=== PATIENT | female | born 1945 | race Caucasian/White ===

== ENCOUNTER → 2017-06-04 | Outpatient (CLI) | payer OTHER | END | disposition home or self-care (01) | LOC: KCIC 12:55 | DX: R06.02 Shortness of breath (principal); R05 Cough | CPT/HCPCS: 71046 ==

== ENCOUNTER → 2017-06-11 | Outpatient (CLI) | payer OTHER | END | disposition home or self-care (01) | LOC: ECHO 09:34 | DX: I36.1 Nonrheumatic tricuspid (valve) insufficiency (principal); I10 Essential (primary) hypertension; R60.0 Localized edema | CPT/HCPCS: 93306 ==

== ENCOUNTER → 2018-03-10 | Outpatient (CLI) | payer OTHER ==
--- NOTE | 2018-03-10 13:36 | KCIC ---
MRI of the lumbar spine without contrast 03/10/2018 CLINICAL HISTORY: Chronic low back pain which radiates down both legs, right greater than left. TECHNIQUE: Unenhanced T1-weighted and T2-weighted sagittal and axial and inversion recovery sagittal images of the lumbar spine were obtained. FINDINGS: For the purposes of this dictation 5 lumbar vertebrae have been assumed. The last well-defined lumbar-appearing disc space will be referred to as L5-S1. A hypoplastic disc is seen at S1-2. Minimal S-shaped curvature of the thoracolumbar spine is seen. Mild anterolisthesis of L4 in relation to L5 is noted. Degenerative signal changes are seen involving all of the disks of the lumbar spine. Degenerative signal changes are seen within the marrow surrounding these discs. The conus medullaris is normal in position and signal characteristics. At the T12-L1 disc space there is a mild generalized disc bulge. Superimposed on this disc bulge is a focal central/right paracentral disc herniation. This measures 6 mm in AP diameter. Degenerative changes are seen involving the facet joints bilaterally. These findings result in mild to moderate right greater than left central spinal canal stenosis. The disc herniation deforms the anterior surface of the distal thoracic spinal cord. No neural foraminal stenosis is seen. At the L1-2 and L2-3 disc spaces there are minimal to mild generalized disc bulges. Degenerative changes are seen involving the facet joints bilaterally. There is mild ligamentum flavum hypertrophy bilaterally. These findings when combined do not result in significant central spinal canal or neural foraminal stenosis. At the L3-4 disc space there is a mild to moderate generalized disc bulge. This is eccentric to the left. Degenerative changes are seen involving the facet joints bilaterally. There is moderate ligamentum flavum hypertrophy bilaterally. There is prominence of the posterior epidural fat. Small facet joint effusions are seen. These findings when combined result in mild to moderate central spinal canal stenosis. Mild bilateral neural foraminal stenosis is seen. At the L4-5 disc space there is a moderate generalized disc bulge. Degenerative changes are seen involving the facet joints bilaterally. There is moderate ligamentum flavum hypertrophy bilaterally. Small facet joint effusions are seen. These findings when combined result in moderate to severe central spinal canal stenosis. Mild bilateral neural foraminal stenosis is seen. At the L5-S1 disc space there is a mild generalized disc bulge. Degenerative changes are seen involving the facet joints bilaterally. There is mild ligamentum flavum hypertrophy. These findings when combined do not result in significant central spinal canal or neural foraminal stenosis. IMPRESSION: The changes of degenerative disc disease are seen involving the lower thoracic and throughout the lumbar spine. These findings result in mild to moderate right greater than left central spinal canal stenosis at T12-L1, mild to moderate central spinal canal stenosis at L3-4 and moderate to severe central spinal canal stenosis at L4-5. Mild bilateral neural foraminal stenosis is seen at L3-4 and L4-5. Electronically signed by: Fabian Hardy MD (03/10/2018 1:33 PM) [id number]
== END | disposition home or self-care (01) ==
LOC: KCIC MRI 09:03
PROVIDERS: ATTEND Family Medicine
DX: M51.36 Other intervertebral disc degeneration, lumbar region (principal); M48.061 Spinal stenosis, lumbar region without neurogenic claudication; M48.05 Spinal stenosis, thoracolumbar region; M25.48 Effusion, other site
CPT/HCPCS: 72148